=== PATIENT | female | born 1950 | race Caucasian/White ===

== ENCOUNTER 2023-09-10 08:54 | Inpatient (IN) | payer MEDICAID ==
[~2023-09-10] VITALS: Ht 157.5 cm; Wt 55.3 kg
[2023-09-10] MEDS ORDERED: diphenhydrAMINE HCL 50 MG/ML VIAL ONE (09:20)
[2023-09-10] MEDS: hydrALAZINE HCL IV 20 MG VIAL IV ONE ×2 (09:20→10:35)
[2023-09-10] MEDS ORDERED: hydrALAZINE HCL IV 20 MG VIAL ONE ×2 (09:21→10:30)
[2023-09-10] MEDS ORDERED: ONDANSETRON HCL/PF 4 MG/2 ML VIAL ONE (09:21)
[2023-09-10] MEDS: ONDANSETRON HCL/PF 4 MG/2 ML VIAL IVP ONE (09:23)
[2023-09-10] MEDS: diphenhydrAMINE HCL 50 MG/ML VIAL IV ONE (09:25)
[2023-09-10 09:32] LABS: BASOPHILS # (AUTO) 0.1 K/uL (0.0-0.2); BASOPHILS % (AUTO) 0.7 % (0.0-2.0); EOSINOPHILS # (AUTO) 0.4 K/uL (0.0-0.7); EOSINOPHILS % (AUTO) 4.6 % (0.0-6.0); HEMATOCRIT 39 % (33-45); HEMOGLOBIN 12.5 g/dL (11.5-14.8); LYMPHOCYTES # (AUTO) 3.6 K/uL (0.8-4.8); LYMPHOCYTES % (AUTO) 41.6 % (20.0-44.0); MEAN CORPUSCULAR HEMOGLOBIN 28 PG (26.0-33.0); MEAN CORPUSCULAR HGB CONC 33 g/dl (31.0-36.0); MEAN CORPUSCULAR VOLUME 86 fL (82-100); MONOCYTES # (AUTO) 0.5 K/uL (0.1-1.30); MONOCYTES % (AUTO) 5.6 % (2.0-12.0); NEUTROPHILS # (AUTO) 4.2 K/uL (1.8-8.9); NEUTROPHILS % (AUTO) 47.5 % (43.0-81.0); PLATELET COUNT (AUTO) 217 K/uL (150-450); RED BLOOD CELL COUNT(AUTO) 4.46 MIL/uL (4.0-5.2); WHITE BLOOD COUNT (AUTO) 8.8 K/uL (4.3-11.0)
[2023-09-10 09:43] LABS: CALCIUM, SERUM 9.8 mg/dL (8.5-10.1); CARBON DIOXIDE 25 mmol/L (21-32); CHLORIDE 99 mmol/L (98-107); CREATININE 0.9 mg/dL (0.6-1.3); GLUCOSE 196 mg/dL (74-106); SODIUM SERUM 137 mmol/L (136-145); UREA NITROGEN, BLOOD 28 mg/dL (7-18)
[2023-09-10 09:46] LABS: INR 0.97 (0.91-1.10); PROTHROMBIN TIME 10.3 SECS (9.2-11.1)
[2023-09-10 09:48] LABS: ALANINE AMINOTRANSFERASE 34 U/L (12-78); ALBUMIN 3.9 g/dL (3.4-5.0); ALKALINE PHOSPHATASE 75 U/L (46-116); ASPARTATE AMINOTRANSFERASE 26 U/L (15-37); BILIRUBIN,DIRECT 0.1 mg/dL (0.0-0.2); BILIRUBIN,TOTAL 0.4 mg/dL (0.2-1.0); TOTAL PROTEIN, SERUM 7.8 g/dL (6.4-8.2)
[2023-09-10 09:49] LABS: POTASSIUM 2.8 mmol/L (3.5-5.1)
[2023-09-10] MEDS ORDERED: POTASSIUM CHLORIDE 20 MEQ TAB.PRT.SR PO ONE (10:30)
[2023-09-10] MEDS: POTASSIUM CHLORIDE 20 MEQ TAB.PRT.SR PO ONE ×2 (10:38→20:10)
[2023-09-10] MEDS: DIAZEPAM 5 MG/ML 2 ML DISP.SYRIN IV ONE (10:55)
[2023-09-10] MEDS ORDERED: DIAZEPAM 5 MG/ML 2 ML DISP.SYRIN ONE (10:55)
[2023-09-10] MEDS ORDERED: OMEG-72 PO (10:59)
[2023-09-10] MEDS ORDERED: ACET-2812 PO (10:59)
[2023-09-10] MEDS ORDERED: CHOL100043 PO (10:59)
[2023-09-10] MEDS ORDERED: CHLO25TA2 PO (10:59)
[2023-09-10] MEDS ORDERED: LOSA100T31 PO (10:59)
[2023-09-10] MEDS ORDERED: SIMV-49 PO (10:59)
[2023-09-10] MEDS: IV NS 0.9% 1,000 ML BAG IV ONE (11:00)
[2023-09-10] MEDS ORDERED: IOHEXOL-350 100 ML VIAL IV ONE (11:05)
[2023-09-10] MEDS ORDERED: IV NS 0.9% 250 ML IV ONE (11:06)
[2023-09-10] MEDS: ACETAMINOPHEN 325 MG TABLET PO PRN (15:55)
[2023-09-10 16:00] VITALS: BP 149/72; TEMP 97.8; O2SAT 98
[2023-09-10] MEDS ORDERED: AMLODIPINE BESYLATE 5 MG TABLET PO SCH (19:00)
[2023-09-10] MEDS ORDERED: hydrALAZINE HCL 25 MG TABLET PO PRN (19:00)
[2023-09-10] MEDS ORDERED: Z GUARD REMEDY 4 OZ OINT TP PRN (19:00)
[2023-09-10] MEDS ORDERED: ACETAMINOPHEN 325 MG TABLET PO PRN (19:00)
[2023-09-10 20:00] VITALS: BP 125/95; TEMP 98.4; O2SAT 97
[2023-09-10] MEDS: IV NS 0.9% 1,000 ML IV PRN (20:29)
[2023-09-10] MEDS ORDERED: ENOXAPARIN SODIUM 40 MG/0.4 ML DISP.SYRIN SQ SCH (21:00)
[2023-09-10] MEDS: ENOXAPARIN SODIUM 60 MG/0.6 ML DISP.SYRIN SQ SCH (22:21)
[2023-09-10] MEDS: SIMVASTATIN 20 MG TABLET PO SCH (22:25)
[2023-09-11] VITALS: BP 119/54; TEMP 98.4; O2SAT 98
[2023-09-11 04:00] VITALS: BP 123/58; TEMP 98; O2SAT 97
[2023-09-11 07:30] VITALS: BP 195/104; TEMP 99; O2SAT 96
[2023-09-11 08:02] LABS: CALCIUM, SERUM 9.1 mg/dL (8.5-10.1); MAGNESIUM 1.7 mg/dL (1.8-2.4); PHOSPHORUS 2.6 mg/dL (2.5-4.9); POTASSIUM 4.2 mmol/L (3.5-5.1)
[2023-09-11 08:08] LABS: THYROID STIMULATING HORMONE 0.796 uIU/mL (0.358-3.74)
[2023-09-11 08:31] LABS: BASOPHILS # (AUTO) 0.1 K/uL (0.0-0.2); BASOPHILS % (AUTO) 0.7 % (0.0-2.0); EOSINOPHILS # (AUTO) 0.2 K/uL (0.0-0.7); EOSINOPHILS % (AUTO) 3.1 % (0.0-6.0); HEMATOCRIT 34 % (33-45); HEMOGLOBIN 11.1 g/dL (11.5-14.8); LYMPHOCYTES % (AUTO) 27.5 % (20.0-44.0); MEAN CORPUSCULAR HEMOGLOBIN 28 PG (26.0-33.0); MEAN CORPUSCULAR HGB CONC 33 g/dl (31.0-36.0); MEAN CORPUSCULAR VOLUME 86 fL (82-100); MONOCYTES # (AUTO) 0.6 K/uL (0.1-1.30); MONOCYTES % (AUTO) 8.6 % (2.0-12.0); NEUTROPHILS # (AUTO) 4.4 K/uL (1.8-8.9); NEUTROPHILS % (AUTO) 60.1 % (43.0-81.0); PLATELET COUNT (AUTO) 225 K/uL (150-450); RED BLOOD CELL COUNT(AUTO) 3.93 MIL/uL (4.0-5.2); RED CELL DISTRIBUTION WIDTH 13.1 % (11.5-15.0); WHITE BLOOD COUNT (AUTO) 7.4 K/uL (4.3-11.0)
[2023-09-11] MEDS: PANTOPRAZOLE 40 MG VIAL IV SCH (09:10)
[2023-09-11] MEDS: AMLODIPINE BESYLATE 5 MG TABLET PO SCH (09:10)
[2023-09-11] MEDS: LOSARTAN POTASSIUM 50 MG TABLET PO SCH (09:10)
[2023-09-11] MEDS: ASPIRIN EC 81 MG TABLET.DR PO SCH (09:10)
[2023-09-11] MEDS: MAGNESIUM OXIDE 400 MG TABLET PO ONE (09:47)
[2023-09-11 16:00] VITALS: BP 161/70; TEMP 98.1; O2SAT 97
[2023-09-11 18:28] LABS: APPEARANCE,URINE CLEAR (CLEAR); BILIRUBIN,URINE NEGATIVE (NEGATIVE); BLOOD, URINE NEGATIVE Ery/uL (NEGATIVE); COLOR,URINE YELLOW (YELLOW); KETONES,URINE NEGATIVE (NEGATIVE); LEUKOCYTE ESTERASE ,URINE 1+ (NEGATIVE); NITRITE, URINE POSITIVE (NEGATIVE); PH,URINE 5.5 (5.0-8.0); PROTEIN,URINE NEGATIVE (NEGATIVE); UGLUCOSE NEGATIVE (NEGATIVE); UROBILINOGEN,URINE 0.2 EU/dL (0.2)
[2023-09-11 18:42] LABS: ADD URINE CULTURE YES; BACTERIA,URINE 3+ /HPF (None Seen); RBC,URINE 0-2 /HPF (0-2); SQUAMOUS EPITHELIAL CELL,UR Few /HPF (None Seen); WBC,URINE 21-50 /HPF (0-3)
[2023-09-11] MEDS: hydrALAZINE HCL IV 20 MG VIAL IV PRN (23:05)
[2023-09-12] VITALS (7 sets, daily range): BP systolic 113–189; BP diastolic 50–85; TEMP 97.9–98.8; O2SAT 96–99
[2023-09-12] MEDS: ONDANSETRON HCL/PF 4 MG/2 ML VIAL IVP PRN (00:17)
[2023-09-12] MEDS: DIAZEPAM 5 MG TABLET PO PRN (01:04)
[2023-09-12 06:50] LABS: BASOPHILS # (AUTO) 0.1 K/uL (0.0-0.2); BASOPHILS % (AUTO) 0.8 % (0.0-2.0); EOSINOPHILS # (AUTO) 0.1 K/uL (0.0-0.7); EOSINOPHILS % (AUTO) 0.6 % (0.0-6.0); HEMATOCRIT 34 % (33-45); HEMOGLOBIN 11.3 g/dL (11.5-14.8); LYMPHOCYTES % (AUTO) 21.9 % (20.0-44.0); MEAN CORPUSCULAR HEMOGLOBIN 29 PG (26.0-33.0); MEAN CORPUSCULAR HGB CONC 33 g/dl (31.0-36.0); MEAN CORPUSCULAR VOLUME 86 fL (82-100); MONOCYTES # (AUTO) 0.4 K/uL (0.1-1.30); MONOCYTES % (AUTO) 4.9 % (2.0-12.0); NEUTROPHILS # (AUTO) 6.5 K/uL (1.8-8.9); NEUTROPHILS % (AUTO) 71.8 % (43.0-81.0); PLATELET COUNT (AUTO) 240 K/uL (150-450); RED BLOOD CELL COUNT(AUTO) 3.97 MIL/uL (4.0-5.2); RED CELL DISTRIBUTION WIDTH 12.9 % (11.5-15.0)
[2023-09-12 07:10] LABS: CALCIUM, SERUM 8.8 mg/dL (8.5-10.1); CREATININE 0.8 mg/dL (0.6-1.3); POTASSIUM 3.9 mmol/L (3.5-5.1)
[2023-09-12] MEDS: PANTOPRAZOLE 40 MG TABLET.DR PO SCH (08:49)
[2023-09-12] MEDS: METOPROLOL SUCCINATE 50 MG TAB.SR.24H PO SCH (09:36)
[2023-09-12] MEDS: hydrALAZINE HCL 25 MG TABLET PO SCH (11:00)
[2023-09-12] MEDS ORDERED: CEPHALEXIN MONOHYDRATE 250 MG CAPSULE PO SCH (11:00)
[2023-09-12] MEDS: NIFEdipine XL (30MG) 30 MG TAB PO SCH (11:00)
[2023-09-12] MEDS: MECLIZINE HCL 12.5 MG TABLET PO PRN (11:22)
[2023-09-12] MEDS: predniSONE 20 MG TABLET PO SCH (12:15)
[2023-09-12] MEDS: CEPHALEXIN MONOHYDRATE 250 MG CAPSULE PO SCH (12:15)
[2023-09-13] VITALS: BP 105/56; TEMP 98.6; O2SAT 98
[2023-09-13 04:00] VITALS: BP 138/65; TEMP 97.5; O2SAT 98
[2023-09-13 07:30] VITALS: BP 146/64; TEMP 97.7; O2SAT 98
[2023-09-13 12:00] VITALS: BP 133/61; TEMP 98.6; O2SAT 96
[2023-09-13] MEDS ORDERED: IOHEXOL-350 100 ML VIAL IV ONE (12:30)
[2023-09-13] MEDS ORDERED: METOPROLOL TARTRATE INJ 5 MG/5 ML AMPUL ONE (12:30)
[2023-09-13] MEDS ORDERED: NITROGLYCERIN 0.4 MG/TAB BOTTLE ONE (12:30)
[2023-09-13] MEDS ORDERED: CT SWABBABLE VALVE TRANS SET 1 EA INFUS.SET MC ONE (12:31)
[2023-09-13] MEDS ORDERED: IV NS 0.9% 250 ML IV ONE (12:31)
[2023-09-13] MEDS: METOPROLOL TARTRATE INJ 5 MG/5 ML AMPUL IVP PRN (12:35)
[2023-09-13] MEDS: NITROGLYCERIN 0.4 MG/TAB BOTTLE SL ONE (12:41)
[2023-09-13 16:00] VITALS: BP 145/61; TEMP 98.6; O2SAT 98
[2023-09-13] MEDS ORDERED: METO50TA7 PO (16:07)
[2023-09-13] MEDS ORDERED: CEPH250C PO (16:07)
[2023-09-13] MEDS ORDERED: MECL-182 PO (16:07)
[2023-09-13] MEDS ORDERED: ONDA4TAB11 PO (16:07)
[2023-09-13] MEDS ORDERED: PANT40TA49 PO (16:07)
[2023-09-13] MEDS ORDERED: PRED20TA PO (16:07)
[2023-09-13] MEDS ORDERED: NIFE-35 PO (16:07)
[2023-09-13] MEDS ORDERED: ASPI-1420 PO (16:10)
[2023-09-13] MEDS ORDERED: ATOR40TA PO (16:10)
[2023-09-13] MEDS: MECLIZINE HCL 25 MG TABLET PO PRN (18:33)
== END 2023-09-13 19:15 | disposition home or self-care (01) | DRG 199 ==
LOC: ER 09:00 → TELE 15:01
PROVIDERS: ADMIT Nurse Practitioner Acute Care; ATTEND Nurse Practitioner Acute Care
DX: I16.0 Hypertensive urgency (principal); I21.A1 Myocardial infarction type 2; J81.1 Chronic pulmonary edema; H81.20 Vestibular neuronitis, unspecified ear; N17.9 Acute kidney failure, unspecified; H81.10 Benign paroxysmal vertigo, unspecified ear; E78.5 Hyperlipidemia, unspecified; E87.6 Hypokalemia; I10 Essential (primary) hypertension; I70.0 Atherosclerosis of aorta; E86.0 Dehydration; Z79.899 Other long term (current) drug therapy; I99.8 Other disorder of circulatory system; Z86.73 Personal history of transient ischemic attack (TIA), and cerebral infarction without residual deficits; T50.2X5A Adverse effect of carbonic-anhydrase inhibitors, benzothiadiazides and other diuretics, initial encounter; Y92.9 Unspecified place or not applicable; Z98.890 Other specified postprocedural states; I44.7 Left bundle-branch block, unspecified; I15.9 Secondary hypertension, unspecified; I65.21 Occlusion and stenosis of right carotid artery
CPT/HCPCS: 36415; 70450-TC; 70496-TC; 70498-TC; 70551-TC; 71045-TC; 75574; 80048-TC; 80061-TC; 80076-TC; 81001; 82533; 82550-TC; 83735-TC; 84100-TC; 84244; 84443-TC; 84484-TC; 85025-TC; 85730-TC; 87086-TC; 93307-TC; 93880-TC; A4223; C9113; G0378; J0360; J1200; J1650; J2405; J3360; J3490; J7030; J7050; J8597; Q9967

== ENCOUNTER 2024-09-29 14:54 | Emergency (ER) | payer MEDICAID ==
[~2024-09-29] VITALS: Ht 157.5 cm; Wt 55.8 kg
[~2024-09-29 14:54] MED LIST: ACET-2812 PO; ASPI-1420 PO; ATOR40TA PO; CEPH250C PO; CHLO25TA2 PO; CHOL100043 PO; LOSA100T31 PO; MECL-182 PO; METO50TA7 PO; NIFE-35 PO; OMEG-72 PO; ONDA4TAB11 PO; PANT40TA49 PO; PRED20TA PO; SIMV-49 PO
[2024-09-29 15:09] VITALS: TEMP 98.1
[2024-09-29] MEDS: IV NS 0.9% 1,000 ML BAG IV ONE (16:19)
[2024-09-29] MEDS ORDERED: ONDANSETRON HCL/PF 4 MG/2 ML VIAL ONE (16:20)
[2024-09-29] MEDS ORDERED: MORPHINE SULFATE INJ 2 MG/ML DISP.SYRIN ONE (16:20)
[2024-09-29] MEDS: ONDANSETRON HCL/PF 4 MG/2 ML VIAL IV ONE (16:23)
[2024-09-29 16:24] LABS: BASOPHILS # (AUTO) 0.1 K/uL (0.0-0.2); BASOPHILS % (AUTO) 0.6 % (0.0-2.0); EOSINOPHILS # (AUTO) 0.2 K/uL (0.0-0.7); EOSINOPHILS % (AUTO) 2.2 % (0.0-6.0); HEMATOCRIT 38 % (33-45); HEMOGLOBIN 13.1 g/dL (11.5-14.8); LYMPHOCYTES # (AUTO) 3.3 K/uL (0.8-4.8); LYMPHOCYTES % (AUTO) 35.9 % (20.0-44.0); MEAN CORPUSCULAR HEMOGLOBIN 29 PG (26.0-33.0); MEAN CORPUSCULAR HGB CONC 34 g/dl (31.0-36.0); MEAN CORPUSCULAR VOLUME 84 fL (82-100); MONOCYTES # (AUTO) 0.8 K/uL (0.1-1.30); MONOCYTES % (AUTO) 8.3 % (2.0-12.0); NEUTROPHILS # (AUTO) 4.8 K/uL (1.8-8.9); PLATELET COUNT (AUTO) 257 K/uL (150-450); RED BLOOD CELL COUNT(AUTO) 4.56 MIL/uL (4.0-5.2); RED CELL DISTRIBUTION WIDTH 14.1 % (11.5-15.0); WHITE BLOOD COUNT (AUTO) 9.1 K/uL (4.3-11.0)
[2024-09-29] MEDS: MORPHINE SULFATE INJ 2 MG/ML DISP.SYRIN IV ONE (16:25)
[2024-09-29 16:39] LABS: INR 0.95 (0.91-1.10); PARTIAL THROMBOPLASTIN TIME 25.9 SEC (24.3-34.3); PROTHROMBIN TIME 10.1 SECS (9.2-11.1)
[2024-09-29 16:40] LABS: ALANINE AMINOTRANSFERASE 27 U/L (12-78); ALBUMIN 4.1 g/dL (3.4-5.0); ALKALINE PHOSPHATASE 109 U/L (46-116); ASPARTATE AMINOTRANSFERASE 25 U/L (15-37); BILIRUBIN,DIRECT 0.2 mg/dL (0.0-0.2); BILIRUBIN,TOTAL 0.5 mg/dL (0.2-1.0); CALCIUM, SERUM 9.9 mg/dL (8.5-10.1); CARBON DIOXIDE 27 mmol/L (21-32); CHLORIDE 101 mmol/L (98-107); CREATININE 1.1 mg/dL (0.6-1.3); GLUCOSE 105 mg/dL (74-106); POTASSIUM 3.3 mmol/L (3.5-5.1); SODIUM SERUM 141 mmol/L (136-145); TOTAL PROTEIN, SERUM 8.3 g/dL (6.4-8.2); UREA NITROGEN, BLOOD 27 mg/dL (7-18)
[2024-09-29] MEDS ORDERED: IOHEXOL-350 100 ML VIAL IV ONE (16:46)
[2024-09-29] MEDS ORDERED: IV NS 0.9% 250 ML IV ONE (16:47)
[2024-09-29] MEDS ORDERED: LIDO30AD10 TP (19:30)
[2024-09-29] MEDS ORDERED: ACET-907 PO (19:30)
[2024-09-29] MEDS ORDERED: LIDOCAINE 5% (PATCH) 1 EA PATCH TP ONE (20:01)
[2024-09-29] MEDS ORDERED: ACETAMINOPHEN W/ CODEINE#3 1 EA TABLET ONE (20:01)
[2024-09-29] MEDS ORDERED: POTASSIUM CHLORIDE 20 MEQ TAB.PRT.SR PO ONE (20:02)
[2024-09-29] MEDS: ACETAMINOPHEN W/ CODEINE#3 1 EA TABLET PO ONE (20:11)
[2024-09-29] MEDS: POTASSIUM CHLORIDE 20 MEQ TAB.PRT.SR PO ONE (20:12)
[2024-09-29] MEDS: LIDOCAINE 5% (PATCH) 1 EA PATCH TP ONE (20:13)
[2024-09-29 20:23] VITALS: BP 145/80; O2SAT 96
== END 2024-09-29 20:22 | disposition home or self-care (01) ==
LOC: ER 14:57
DX: S22.31XA Fracture of one rib, right side, initial encounter for closed fracture (principal); E78.5 Hyperlipidemia, unspecified; E87.6 Hypokalemia; Z79.52 Long term (current) use of systemic steroids; Z79.82 Long term (current) use of aspirin; Z79.899 Other long term (current) drug therapy; Z88.8 Allergy status to other drugs, medicaments and biological substances; I10 Essential (primary) hypertension; V49.49XA Driver injured in collision with other motor vehicles in traffic accident, initial encounter; W22.11XA Striking against or struck by driver side automobile airbag, initial encounter; Y93.89 Activity, other specified; Y92.415 Exit ramp or entrance ramp of street or highway as the place of occurrence of the external cause; Y99.8 Other external cause status
CPT/HCPCS: 99285; 74174; 96374; 71275; 96361; 96375; 93005; 85025; 80048; 80076; 36415; 84484 ×2; 85730; J2405; J7030; J7050; J2270; Q9967